=== PATIENT | male | born 1995 | race Caucasian/White ===

== ENCOUNTER 2018-05-21 08:53 | Emergency (ER) | payer OTHER ==
[2018-05-21] MEDS: TRIMETHOPRIM/SULFAMETHOX (DS) TAB PO (09:18)
[2018-05-21] MEDS: CEPHALEXIN 500 MG CAP PO (09:18)
[2018-05-21] MEDS: DIPHTH/TET/ACEL PERTUSS (ADULT) 0.5 ML VIAL IM* (09:45)
== END 2018-05-21 10:34 | disposition home or self-care (01) ==
LOC: FTE 08:53
DX: L03.011 Cellulitis of right finger (principal); Z23 Encounter for immunization
CPT/HCPCS: 73140; 90471; 90715; 99284-25

== ENCOUNTER 2019-02-22 18:37 | Emergency (ER) | payer OTHER ==
[2019-02-22] MEDS: BACITRACIN 0.9 GM OINT TOP (19:17)
== END 2019-02-22 19:21 | disposition home or self-care (01) ==
LOC: FTE 18:37
DX: S80.212A Abrasion, left knee, initial encounter (principal); X58.XXXA Exposure to other specified factors, initial encounter; Y92.9 Unspecified place or not applicable
CPT/HCPCS: 99282; Z7502

== ENCOUNTER 2019-03-27 22:27 | Emergency (ER) | payer OTHER ==
[2019-03-27] MEDS: KETOROLAC 30 MG INJ IM (23:25)
== END 2019-03-28 03:03 | disposition home or self-care (01) ==
LOC: FTE 03-28 03:03
DX: S52.514A Nondisplaced fracture of right radial styloid process, initial encounter for closed fracture (principal); V29.9XXA Motorcycle rider (driver) (passenger) injured in unspecified traffic accident, initial encounter
CPT/HCPCS: 29105; 73090-RT; 73110-RT; 73130-RT; 96372; 99284-25

== ENCOUNTER 2019-04-06 11:41 | Emergency (ER) | payer OTHER ==
[2019-04-06] MEDS: KETOROLAC 60 MG INJ IM (12:53)
== END 2019-04-06 14:40 | disposition home or self-care (01) ==
LOC: FTE 11:41
DX: S89.91XA Unspecified injury of right lower leg, initial encounter (principal); S69.91XA Unspecified injury of right wrist, hand and finger(s), initial encounter; W18.39XA Other fall on same level, initial encounter; Y92.410 Unspecified street and highway as the place of occurrence of the external cause; Z87.891 Personal history of nicotine dependence
CPT/HCPCS: 29125; 73562; 96372; 99284-25

== ENCOUNTER 2019-06-05 06:00 | Emergency (ER) | payer OTHER ==
[2019-06-05] MEDS: HYDROCODONE/APAP (5/325) TAB PO (06:36)
== END 2019-06-05 08:05 | disposition home or self-care (01) ==
LOC: FTE 08:05
DX: S50.312A Abrasion of left elbow, initial encounter (principal); F17.210 Nicotine dependence, cigarettes, uncomplicated; S59.912A Unspecified injury of left forearm, initial encounter; V23.4XXA Motorcycle driver injured in collision with car, pick-up truck or van in traffic accident, initial encounter
CPT/HCPCS: 73080; 73080-LT; 73110-LT; 99283-25